=== PATIENT | female | born 1945 | race Caucasian/White ===

== ENCOUNTER 2022-01-01 12:05 | Observation (INO) ==
[2022-01-01] MEDS ORDERED: NS 500 ML IV 500 ML IV ONE (13:06)
--- NOTE | 2022-01-01 13:06 | DR.DIARMA ---
HPI Time seen Time Seen by Provider: 01/01/22 13:01 PCP Primary Care Physician: [facility] Complaint Chief Complaint Doctor Comments: 76 y/o female presents with diarrhea and lower abdominal pain x 3 days. Pain located LLQ, cramping in nature, does not radiate. Nothing makes it better, nothing makes it worse. Denies associated fever, chill s, urinary issues. Stool with foul odor, like when spouse had C diff. Denies being on recent antibiotics. Has been belching more. Had chest discomfort yesterday, was substernal, constant, now resolved. + h/o hiatal hernia and diverticulitis in the past. Chief Complaint:: Pt c/o diarrhea since yesterday. She states " It smells like c-diff." Pt states she has had indigestion and belching as well. She c/o nausea and lower abd/back pain. COVID-19 Coronavirus risk:travel/contact w/high risk person: No Has patient experienced Coronavirus symptoms: No Reviewed Nurses notes reviewed: Yes Source History Provided: Patient Mode of Arrival Mode of Arrival: Ambulatory Timing Onset of Chief Complaint: 01/01/22 PMH PMH Past Medical History: Yes Past Medical History: Anxiety, Diabetes, Dyslipidemia and Hypertension Past Surgical History: Yes Surgical History: Cholecystectomy and Hysterectomy Family History History of Family Medical Conditions: Yes Social History Does patient currently use any type of tobacco product: No Have you used tobacco products in the last 12 months: No Type of Tobacco Use: None Does any household member use tobacco: No Alcohol Use: None Do you use any recreational Drugs:: No Lives With: Family Lives Where: Home Travel Risk Coronavirus risk:travel/contact w/high risk person: No Has patient experienced Coronavirus symptoms: No Infectious screening In the last 2 months have you had wt loss of >10#?: NO Have you had fever, night sweats or hemotysis?: No Have you traveled outside the country in the last 6 months?: No Isolation: Standard ROS Review of Systems Constitutional: No Symptoms Reported Eyes: No Symptoms Reported ENTM: No Symptoms Reported Respiratoy: No Symptoms Reported Cardiovascular: Chest Pain (yesterday) Gastrointestinal/Abdominal: Abdominal Pain and Diarrhea Genitourinary: No Symptoms Reported Neurological: No Symptoms Reported Musculoskeletal: Back Pain (chronic) Integumentary: No Symptoms Reported Hematologic/Lymphatic: No Symptoms Reported Psychiatric: No Symptoms Reported All Other Systems: Reviewed and Negative PE Vital Signs Vitals: Temperature 98.4 F Pulse Rate 102 Respiratory Rate 20 Blood Pressure 182/74 O2 Sat by Pulse Oximetry 96 General Limitations: No Limitations General Appearance: Alert and In No Apparent Distress Eyes Eye exam: PERRL and EOMI ENT ENT Exam: Mucous Membranes Moist Neck Neck Exam: Normal Inspection and Full ROM Chest Chest Inspection: Normal Inspection Respiratory Respiratory Exam: Normal Lung Sounds Bilat; negative Accessory Muscle Use and Respiratory Distress Respiratory Exam: Bilateral: Clear to Auscultation Cardiovascular Cardiovascular Exam: Regular Rate, Normal Rhythm, Tachycardia and Normal Heart Sounds Abdominal Exam Abdominal Exam: Normal Inspection, Normal Bowel Sounds and Soft; negative Tenderness, Guarding and Rebound Extremeties Extremities Exam: Normal Inspection and Full ROM; negative Edema Back Back Exam: Normal Inspection; negative (R) CVA Tenderness and (L) CVA Tenderness Neurologic Neurological Exam: Alert, Oriented X3 and CN II-XII Intact; negative Motor Sensory Deficit Psychiatric Psychiatric Exam: Normal Affect Skin Skin Exam: Warm and Dry MDM Differential Diagnosis Differential Diagnosis: Diarrhea Bacterial, Diarrhea Viral, Diverticular disease and Gastroenteritis COURSE Treatment Treatment: Pt given IV fluids, w/u initiated. 1750 - W/u shows labs to be overall acceptable, except for potassium low at 3.1. U/A shows 20-30 WBCs with + cindi est and bacteria, c/w UTI. Given IV Rocephin. CT of the abd/pelvis done, + large amount of diverticulosis, no -itis. + liquid stool in bowels. Pt has been unable to provide a stool sample for c diff. Having small, liquid stools, in diaper, soaks up, lab unable to run on those samples. RN attempting to collect with hat on toilet. Discussed with covering , Dr Gray. Will admit pt for ob servation, continue IV fluids, IV rocephin for UTI. ROR Labs Reviewed Laboratory Results Reviewed?: Yes Result Diagrams: 01/01/22 13:16 01/01/22 13:16 Laboratory: WBC 6.8 X10^3/uL (3.6-10.0) 01/01/22 13:16 RBC 4.47 X10^6/uL (3.5-5.4) 01/01/22 13:16 Hgb 13.5 g/dL (12.0-16.0) 01/01/22 13:16 Hct 39.7 % (36.0-47.0) 01/01/22 13:16 MCV 88.8 fL (80.0-100.0) 01/01/22 13:16 MCH 30.2 pg (27.0-34.0) 01/01/22 13:16 MCHC 34.1 g/dL (33.0-35.0) 01/01/22 13:16 RDW 13.3 % (11.6-16.5) 01/01/22 13:16 Plt Count 183 X10^3/uL (150.0-450.0) 01/01/22 13:16 MPV 8.2 fL (7.4-11.0) 01/01/22 13:16 Neut % (Auto) 84.7 % (42.0-75.0) H 01/01/22 13:16 Lymph % (Auto) 7.5 % (21.0-51.0) L 01/01/22 13:16 [place] % (Auto) 7.1 % (0.0-13.0) 01/01/22 13:16 Eos % (Auto) 0.4 % (0.9-2.9) L 01/01/22 13:16 Baso % (Auto) 0.3 % (0.2-1.0) 01/01/22 13:16 Neut # (Auto) 5.8 x10^3/uL (2.2-4.8) H 01/01/22 13:16 Lymph # (Auto) 0.5 X10^3/uL (1.3-2.9) L 01/01/22 13:16 [place] # (Auto) 0.5 x10^3/uL (0.3-0.8) 01/01/22 13:16 Eos # (Auto) 0.0 x10^3/uL (0.0-0.2) 01/01/22 13:16 Baso # (Auto) 0.0 X10^3/uL (0.0-0.1) 01/01/22 13:16 Absolute Nucleated RBC 0.1 /100WBC 01/01/22 13:16 Sodium 139 mmol/L (136-145) 01/01/22 13:16 Corrected Sodium TNP 01/01/22 13:16 Potassium 3.1 mmol/L (3.5-5.1) L 01/01/22 13:16 Chloride 105 mmol/L (98-107) 01/01/22 13:16 Carbon Dioxide 24.2 mmol/L (21-32) 01/01/22 13:16 BUN 23 mg/dL (7-18) H 01/01/22 13:16 Creatinine 1.03 mg/dL (0.55-1.02) H 01/01/22 13:16 Est GFR (MDRD) Af Amer > 60 (>60) 01/01/22 13:16 Est GFR (MDRD) Non-Af 55 (>60) L 01/01/22 13:16 Glucose 110 mg/dL (65-99) H 01/01/22 13:16 Calcium 8.5 mg/dL (8.5-10.1) 01/01/22 13:16 Corrected Calcium TNP 01/01/22 13:16 Total Bilirubin 0.40 mg/dL (0.2-1.0) 01/01/22 13:16 AST 22 Units/L (15-37) 01/01/22 13:16 ALT 25 Units/L (12-78) 01/01/22 13:16 Alkaline Phosphatase 70 Units/L (46-116) 01/01/22 13:16 Creatine Kinase 49 Units/L (26-192) 01/01/22 13:16 CK-MB (CK-2) < 1.0 ng/mL (0-4.0) 01/01/22 13:16 CK/CKMB % Calc 2.0 % (<4) 01/01/22 13:16 Troponin I High Sens 11.3 ng/L (4.0-60.0) 01/01/22 13:16 Total Protein 7.0 g/dL (6.4-8.2) 01/01/22 13:16 Albumin 3.6 g/dL (3.4-5.0) 01/01/22 13:16 Globulin 3.4 g/dL (2.5-4.5) 01/01/22 13:16 Albumin/Globulin Ratio 1.1 Ratio (1.1-2.1) 01/01/22 13:16 Lipase 270 Units/L (73-393) 01/01/22 13:16 Specimen Type Clean catch urine 01/01/22 15:08 Urine Color Yellow (YELLOW) 01/01/22 15:08 Urine Appearance Clear (CLEAR) 01/01/22 15:08 Urine pH 5.0 (5.0 - 8.0) 01/01/22 15:08 Ur Specific [place] 1.015 (1.000-1.030) 01/01/22 15:08 Urine Protein 2+ (NEGATIVE) 01/01/22 15:08 Urine Glucose (UA) Negative (NEGATIVE) 01/01/22 15:08 Urine Ketones 1+ (NEGATIVE) 01/01/22 15:08 Urine Blood 1+ (NEGATIVE) 01/01/22 15:08 Urine Nitrite Negative (NEGATIVE) 01/01/22 15:08 Urine Bilirubin Negative (NEGATIVE) 01/01/22 15:08 Urine Urobilinogen Normal (NORMAL) 01/01/22 15:08 Ur Leukocyte Esterase 3+ (NEGATIVE) 01/01/22 15:08 Urine RBC 5-10 /HPF (0-3) A 01/01/22 15:08 Urine WBC 20-30 /HPF (0-5) A 01/01/22 15:08 Ur Squamous Epith Cells Few /HPF (NEGATIVE) 01/01/22 15:08 Urine Bacteria Trace /HPF (NEGATIVE) 01/01/22 15:08 Urine Mucus Few /HPF (NEGATIVE) 01/01/22 15:08 Ur Culture Indicated? Yes/culture set up 01/01/22 15:08 EKG Rate: 75 [place]: Normal Block: None Hypertrophy: None ST: Nonsp Opioid Opioid Risk Tool Age (Tristin box if 16-45): No History of Preadolescent Sexual Abuse: No Total: 0 Total Score Risk Category: Low Risk Copyright: Venkata SHIRLEY predicting aberrant behaviors Diagnosis Discharge Problem: Enteritis, Acute hypokalemia, Acute UTI Instructions Forms: Precautions for COVID19 [facility] Patient Portal Social Distancing
[2022-01-01] MEDS ORDERED: NS 1,000 ML IV 1,000 ML ONE (13:07)
[2022-01-01 13:25] LABS: BASOPHILS % (AUTO) 0.3 % (0.2-1.0); EOSINOPHILS % (AUTO) 0.4 % (0.9-2.9); HEMATOCRIT 39.7 % (36.0-47.0); HEMOGLOBIN 13.5 g/dL (12.0-16.0); LYMPHOCYTES # (AUTO) 0.5 X10^3/uL (1.3-2.9); LYMPHOCYTES % (AUTO) 7.5 % (21.0-51.0); MEAN CORPUSCULAR HEMOGLOBIN 30.2 pg (27.0-34.0); MEAN CORPUSCULAR HGB CONC 34.1 g/dL (33.0-35.0); MEAN CORPUSCULAR VOLUME 88.8 fL (80.0-100.0); MEAN PLATELET VOLUME 8.2 fL (7.4-11.0); MONOCYTES # (AUTO) 0.5 x10^3/uL (0.3-0.8); MONOCYTES % (AUTO) 7.1 % (0.0-13.0); NEUTROPHILS # (AUTO) 5.8 x10^3/uL (2.2-4.8); NEUTROPHILS % (AUTO) 84.7 % (42.0-75.0); RED BLOOD COUNT 4.47 X10^6/uL (3.5-5.4); RED CELL DISTRIBUTION WIDTH 13.3 % (11.6-16.5); WHITE BLOOD COUNT 6.8 X10^3/uL (3.6-10.0)
[2022-01-01 13:46] LABS: ALANINE AMINOTRANSFERASE 25 Units/L (12-78); ALBUMIN 3.6 g/dL (3.4-5.0); ALKALINE PHOSPHATASE 70 Units/L (46-116); ASPARTATE AMINO TRANSFERASE 22 Units/L (15-37); BLOOD UREA NITROGEN 23 mg/dL (7-18); CALCIUM 8.5 mg/dL (8.5-10.1); CARBON DIOXIDE 24.2 mmol/L (21-32); CHLORIDE 105 mmol/L (98-107); CREATINE KINASE 49 Units/L (26-192); CREATINE KINASE MB < 1.0 ng/mL (0-4.0); CREATININE 1.03 mg/dL (0.55-1.02); LIPASE 270 Units/L (73-393); SODIUM 139 mmol/L (136-145); eGFR NON BLACK RACES 55 (>60)
[2022-01-01] MEDS ORDERED: ZOFRAN INJ 4 MG VIAL ONE (14:02)
[2022-01-01] MEDS ORDERED: ZOFRAN INJ 4 MG VIAL IVP ONE (14:04)
[2022-01-01 15:15] LABS: BILIRUBIN,URINE NEGATIVE (NEGATIVE); BLOOD/HEMOGLOBIN,URINE 1+ (NEGATIVE); GLUCOSE, URINE NEGATIVE (NEGATIVE); KETONES,URINE 1+ (NEGATIVE); LEUKOCYTE ESTERASE ,URINE 3+ (NEGATIVE); NITRITES,URINE NEGATIVE (NEGATIVE); PROTEIN,URINE 2+ (NEGATIVE); UROBILINOGEN,URINE NORMAL (NORMAL)
[2022-01-01 15:24] LABS: APPEARANCE,URINE CLEAR (CLEAR); COLOR,URINE YELLOW (YELLOW)
[2022-01-01 15:25] LABS: BACTERIA,URINE TRACE /HPF (NEGATIVE); SQUAMOUS EPITHELIAL CELL,UR FEW /HPF (NEGATIVE)
--- NOTE | 2022-01-01 15:34 | CT ---
EXAM: CT ABDOMEN AND PELVIS WITH INTRAVENOUS CONTRASTHISTORY: Nausea. Lower abdominal and back pain.TECHNIQUE: Spiral axial CT images are obtained through the abdomen and pelvis without the administration of oral contrast and with the administration of intravenous contrast. Additional coronal and sagittal reformatted images are reconstructed.DOSIMETRY: Total DLP 638.2 mGycm; CTDI 39.9 mGyCOMPARISON: CT abdomen and pelvis dated April 25, 2020.FINDINGS:GASTROINTESTINAL TRACT: There is diffuse colonic diverticulosis, especially in the sigmoid region, without CT evidence for acute diverticulitis. No evidence for bowel herniation, bowel obstruction, or colitis. Nonspecific, fluid-filled, nondilated stomach and small and large bowel loops within the abdomen and pelvis; presumed gastroenteritis with impending diarrhea. Clinical correlation is advised. A normal-appearing appendix is seen.GENITOURINARY SYSTEM: There are small scattered bilateral renal cysts; largest in the right upper pole kidney measuring approximately 1.2 cm. The kidneys are otherwise unremarkable. 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 There is no ureteral calculus or stigmata of obstructive uropathy. The urinary bladder is grossly unremarkable for a non-dedicated exam.CT ABDOMEN: Status post cholecystectomy. Aortoiliac atherosclerotic disease, without aneurysm formation or dissection. The liver, spleen, pancreas, adrenal glands, and inferior vena cava are within normal limits for a CT scan. There is no intra-abdominal or retroperitoneal lymphadenopathy, free fluid, or free air seen. No abdominal herniation is noted.CT PELVIS: Status post hysterectomy. No pelvic sidewall or inguinal lymphadenopathy is seen. No inguinal herniation is noted. No free fluid or free air is seen.BONES AND JOINTS: Multilevel DDD is seen in the distal thoracic and lumbar spine. The visualized bony structures are otherwise within normal limits.LUNG BASES: The lung bases are clear.IMPRESSION:1. Nonspecific, fluid-filled, nondilated stomach and small and large bowel loops within the abdomen and pelvis; presumed gastroenteritis with impending diarrhea. Clinical correlation is advised.2. Diffuse colonic diverticulosis, especially in the sigmoid region, without CT evidence for acute diverticulitis.3. No evidence for bowel herniation, bowel obstruction, appendicitis or colitis.4. No evidence for pyelonephritis, renal stone disease or obstructive uropathy.5. No free fluid, free air, mass lesions, or lymphadenopathy seen.6. Status post cholecystectomy and hysterectomy.Electronically signed by: Gulshan Chiang (Jan 01, 2022 15:33:17)
[2022-01-01] MEDS ORDERED: NORCO 7.5/325 MG TAB PO ONE (18:20)
[2022-01-01] MEDS ORDERED: K-DUR TAB 20 MEQ PO ONE (18:22)
[2022-01-01] MEDS ORDERED: NORCO 7.5/325 MG TAB ONE (18:22)
[2022-01-01] MEDS: MICRO K EXTEN CAP 10 MEQ PO PRN (18:25)
[2022-01-01] MEDS ORDERED: REQUIP PO PRN (20:41)
[2022-01-01] MEDS: NS 1,000 ML IV 1,000 ML IV SCH (22:05)
[2022-01-01] MEDS: ROCEPHIN 1 GRAM IV PREMIX 1 G/50 ML IV.SOLN. IV SCH (22:05)
[2022-01-01] MEDS: K-DUR TAB 20 MEQ PO SCH (22:08)
[2022-01-01] MEDS: XANAX PO PRN (22:08)
[2022-01-01] MEDS: NORCO 7.5/325 MG TAB PO PRN (22:09)
[2022-01-01] MEDS ORDERED: REQUIP PO ONE (22:13)
[2022-01-02] MEDS ORDERED: MAALOX or MYLANTA ONE (00:26)
[2022-01-02] MEDS: MAALOX or MYLANTA PO PRN ×2 (00:27→20:00)
[2022-01-02 01:30] LABS: CKMB % 1.6 % (<4); CREATINE KINASE 64 Units/L (26-192); CREATINE KINASE MB < 1.0 ng/mL (0-4.0)
[2022-01-02 04:44] LABS: BASOPHILS % (AUTO) 0.2 % (0.2-1.0); EOSINOPHILS % (AUTO) 0.1 % (0.9-2.9); HEMATOCRIT 34.9 % (36.0-47.0); HEMOGLOBIN 11.8 g/dL (12.0-16.0); LYMPHOCYTES # (AUTO) 0.7 X10^3/uL (1.3-2.9); LYMPHOCYTES % (AUTO) 9.5 % (21.0-51.0); MEAN CORPUSCULAR HGB CONC 33.9 g/dL (33.0-35.0); MEAN CORPUSCULAR VOLUME 88.4 fL (80.0-100.0); MEAN PLATELET VOLUME 8.7 fL (7.4-11.0); MONOCYTES # (AUTO) 0.5 x10^3/uL (0.3-0.8); MONOCYTES % (AUTO) 7.3 % (0.0-13.0); NEUTROPHILS % (AUTO) 82.9 % (42.0-75.0); RED BLOOD COUNT 3.95 X10^6/uL (3.5-5.4); RED CELL DISTRIBUTION WIDTH 13.2 % (11.6-16.5); WHITE BLOOD COUNT 7.2 X10^3/uL (3.6-10.0)
[2022-01-02 04:48] LABS: ALANINE AMINOTRANSFERASE 72 Units/L (12-78); ALKALINE PHOSPHATASE 109 Units/L (46-116); ASPARTATE AMINO TRANSFERASE 122 Units/L (15-37); BLOOD UREA NITROGEN 18 mg/dL (7-18); CALCIUM 7.8 mg/dL (8.5-10.1); CARBON DIOXIDE 23.3 mmol/L (21-32); CHLORIDE 107 mmol/L (98-107); COR CA(FOR HYPOALB) 8.6 mg/dL (8.5-10.1); CREATININE 0.84 mg/dL (0.55-1.02); SODIUM 139 mmol/L (136-145); TOTAL PROTEIN 6.1 g/dL (6.4-8.2); eGFR NON BLACK RACES > 60 (>60)
--- NOTE | 2022-01-02 08:35 | DR.H&P ---
H&P History & Physical for Day of: H&P Date: 01/02/22 Chief Complaint Chief Complaint: abdominal pain and diarrhea Allergies Allergies Allergy/AdvReac Type Severity Reaction Status Date / Time No Known Drug Allergies Allergy Verified 04/25/20 20:31 History of Present Illness History of Present Illness: Ms Hensley is a 76y/o female with a PMH of HTN, HLD and DM that presented with worsening diarrhea and abdominal cramps for the past 4 days. She has been having watery stools since then along with nausea, no vomiting. Denies fever or chills. Patient was concerned she might have C diff so came to the ER. ER work up showed C diff (-). CTAP showed gastroenteritis and diverticulosis. UA also showed infection. She was started on IV fluids and IV Rocephin. Patient was also complaining of chest tightness, cardiac enzymes and EKG were normal. She is feeling better this morning. Denies chest pain. Her diarrhea has slowed down a bit. She was able to tolerate clears. She states her abdominal pain has also improved. Labs/imaging reviewed Plan: Continue IV Rocephin, add flagyl. Continue hydration. Follow urine Cx. Resume home medications. Monitor stool output. Advance diet to full liquids. Monitor AM labs. Past Medical History Past Medical History: Anxiety, Diabetes, Dyslipidemia and Hypertension Past Surgical History Surgical History: Cholecystectomy and Hysterectomy Family History Family Medical History: Cancer Social History Does patient currently use any type of tobacco product: No Have you used tobacco products in the last 12 months: No Type of Tobacco Use: None Does any household member use tobacco: No Alcohol Use: None Drug Use: None Prescription drug monitoring program results: PDMP reviewed and no concerns identified Medications Home Medications: No Known Drug Allergies Allergy (Verified 04/25/20 20:31) CONTINUE taking the following medications alprazolam [Xanax] 1 mg PO PRN PRN 01/01/22 [History] amlodipine-olmesartan 1 tab PO DAILY 01/01/22 [History] armodafinil 150 mg PO DAILY 01/01/22 [History] hydrocodone-acetaminophen 1 tab PO BID PRN 01/01/22 [History] omeprazole 40 mg PO DAILY 01/01/22 [History] ondansetron HCl [Zofran] 4 mg PO PRN PRN 01/01/22 [History] ropinirole 0.5 mg PO PRN PRN 01/01/22 [History] rosuvastatin 40 mg PO DAILY 01/01/22 [History] semaglutide [Rybelsus] 7 mg PO DAILY 01/01/22 [History] Labs Result Diagrams: 01/02/22 03:50 01/02/22 03:50 Labs: Laboratory WBC 7.2 X10^3/uL (3.6-10.0) 01/02/22 03:50 RBC 3.95 X10^6/uL (3.5-5.4) 01/02/22 03:50 Hgb 11.8 g/dL (12.0-16.0) L 01/02/22 03:50 Hct 34.9 % (36.0-47.0) L 01/02/22 03:50 MCV 88.4 fL (80.0-100.0) 01/02/22 03:50 MCH 30.0 pg (27.0-34.0) 01/02/22 03:50 MCHC 33.9 g/dL (33.0-35.0) 01/02/22 03:50 RDW 13.2 % (11.6-16.5) 01/02/22 03:50 Plt Count 165 X10^3/uL (150.0-450.0) 01/02/22 03:50 MPV 8.7 fL (7.4-11.0) 01/02/22 03:50 Neut % (Auto) 82.9 % (42.0-75.0) H 01/02/22 03:50 Lymph % (Auto) 9.5 % (21.0-51.0) L 01/02/22 03:50 [place] % (Auto) 7.3 % (0.0-13.0) 01/02/22 03:50 Eos % (Auto) 0.1 % (0.9-2.9) L 01/02/22 03:50 Baso % (Auto) 0.2 % (0.2-1.0) 01/02/22 03:50 Neut # (Auto) 6.0 x10^3/uL (2.2-4.8) H 01/02/22 03:50 Lymph # (Auto) 0.7 X10^3/uL (1.3-2.9) L 01/02/22 03:50 [place] # (Auto) 0.5 x10^3/uL (0.3-0.8) 01/02/22 03:50 Eos # (Auto) 0.0 x10^3/uL (0.0-0.2) 01/02/22 03:50 Baso # (Auto) 0.0 X10^3/uL (0.0-0.1) 01/02/22 03:50 Absolute Nucleated RBC 0.0 /100WBC 01/02/22 03:50 Sodium 139 mmol/L (136-145) 01/02/22 03:50 Corrected Sodium TNP 01/02/22 03:50 Potassium 3.8 mmol/L (3.5-5.1) 01/02/22 03:50 Chloride 107 mmol/L (98-107) 01/02/22 03:50 Carbon Dioxide 23.3 mmol/L (21-32) 01/02/22 03:50 BUN 18 mg/dL (7-18) 01/02/22 03:50 Creatinine 0.84 mg/dL (0.55-1.02) 01/02/22 03:50 Est GFR (MDRD) Af Amer > 60 (>60) 01/02/22 03:50 Est GFR (MDRD) Non-Af > 60 (>60) 01/02/22 03:50 Glucose 110 mg/dL (65-99) H 01/02/22 03:50 Calcium 7.8 mg/dL (8.5-10.1) L 01/02/22 03:50 Corrected Calcium 8.6 mg/dL (8.5-10.1) 01/02/22 03:50 Magnesium 1.8 mg/dL (1.7-2.9) 01/02/22 03:50 Total Bilirubin 0.20 mg/dL (0.2-1.0) 01/02/22 03:50 AST 122 Units/L (15-37) H 01/02/22 03:50 ALT 72 Units/L (12-78) 01/02/22 03:50 Alkaline Phosphatase 109 Units/L (46-116) 01/02/22 03:50 Creatine Kinase 64 Units/L (26-192) 01/02/22 00:54 CK-MB (CK-2) < 1.0 ng/mL (0-4.0) 01/02/22 00:54 CK/CKMB % Calc 1.6 % (<4) 01/02/22 00:54 Troponin I High Sens 14.3 ng/L (4.0-60.0) 01/02/22 00:54 Total Protein 6.1 g/dL (6.4-8.2) L 01/02/22 03:50 Albumin 3.0 g/dL (3.4-5.0) L 01/02/22 03:50 Globulin 3.1 g/dL (2.5-4.5) 01/02/22 03:50 Albumin/Globulin Ratio 1.0 Ratio (1.1-2.1) L 01/02/22 03:50 Lipase 270 Units/L (73-393) 01/01/22 13:16 Specimen Type Clean catch urine 01/01/22 15:08 Urine Color Yellow (YELLOW) 01/01/22 15:08 Urine Appearance Clear (CLEAR) 01/01/22 15:08 Urine pH 5.0 (5.0 - 8.0) 01/01/22 15:08 Ur Specific [place] 1.015 (1.000-1.030) 01/01/22 15:08 Urine Protein 2+ (NEGATIVE) 01/01/22 15:08 Urine Glucose (UA) Negative (NEGATIVE) 01/01/22 15:08 Urine Ketones 1+ (NEGATIVE) 01/01/22 15:08 Urine Blood 1+ (NEGATIVE) 01/01/22 15:08 Urine Nitrite Negative (NEGATIVE) 01/01/22 15:08 Urine Bilirubin Negative (NEGATIVE) 01/01/22 15:08 Urine Urobilinogen Normal (NORMAL) 01/01/22 15:08 Ur Leukocyte Esterase 3+ (NEGATIVE) 01/01/22 15:08 Urine RBC 5-10 /HPF (0-3) A 01/01/22 15:08 Urine WBC 20-30 /HPF (0-5) A 01/01/22 15:08 Ur Squamous Epith Cells Few /HPF (NEGATIVE) 01/01/22 15:08 Urine Bacteria Trace /HPF (NEGATIVE) 01/01/22 15:08 Urine Mucus Few /HPF (NEGATIVE) 01/01/22 15:08 Ur Culture Indicated? Yes/culture set up 01/01/22 15:08 Stl C. diff Tox B Gene Negative (NEGATIVE) 01/01/22 21:40 Stl C. diff [id number] Presumptive negative (NEGATIVE) 01/01/22 21:40 SARS-CoV-2 (PCR) Negative (NEGATIVE) 01/01/22 17:51 Review of Systems Constitutional: Weakness Eyes: No Symptoms Reported ENT: No Symptoms Reported Respiratory: No Symptoms Reported Cardiovascular: Chest Pain Gastrointestinal: Nausea, Abdominal Pain and Diarrhea Genitourinary: No Symptoms Reported Musculoskeletal: No Symptoms Reported Skin: No Symptoms Reported Neurological: No Symptoms Reported Physical Exam Vital Signs: Temperature 98.3 F Pulse Rate [Left Brachial] 66 Pulse Rate 102 Respiratory Rate 16 Blood Pressure [Left Arm] 130/60 Blood Pressure 182/74 O2 Sat by Pulse Oximetry 94 Oriented: Normal Eyes: Normal Ear: Normal Nose: Normal Throat: Normal Respiratory: Clear Throughout Cardiovascular: Normal Auscultation: Bowel Sounds: Normal Palpation: Normal Tenderness: Diffuse and Mild; negative Guarding and Rigidity Skin: Decreased [place]urgur Musculoskeletal: Normal Psychiatric: Normal Mood Description: Calm Affect: Normal Speech Pattern: Clear and Appropriate Assessment/Plan (1) Gastroenteritis: Status: Acute (2) UTI (urinary tract infection): Qualifiers: Hematuria presence: with hematuria Urinary tract infection type: site unspecified Qualified Code(s): N39.0 - Urinary tract infection, site not specified; R31.9 - Hematuria, unspecified Status: Acute (3) Diarrhea: Qualifiers: Diarrhea type: unspecified type Qualified Code(s): R19.7 - Diarrhea, unspecified Status: Acute (4) Acute hypokalemia: Status: Acute (5) HTN (hypertension): Qualifiers: Hypertension type: primary hypertension Qualified Code(s): I10 - Essential (primary) hypertension Status: Acute Review H&P Reviewed: Yes Patient was examined?: Yes
[2022-01-02] MEDS ORDERED: CRESTOR TAB 10 MG PO SCH (09:00)
[2022-01-02] MEDS ORDERED: PATIENT'S HOME MEDICATION (Rosuvastatin 40 mg tablet) PO SCH (09:00)
[2022-01-02] MEDS ORDERED: AMLODIPINE OLMESARTAN PO SCH (09:00)
[2022-01-02] MEDS: NORVASC TAB 10 MG PO SCH (09:33)
[2022-01-02] MEDS: PriLOSEC PO SCH (09:33)
[2022-01-02] MEDS: BENICAR TAB 40 MG PO SCH (09:33)
[2022-01-02] MEDS: K-DUR TAB 20 MEQ PO SCH ×2 (09:35→21:05)
[2022-01-02] MEDS: ARMODAFINIL 150 MG PO SCH (09:38)
[2022-01-02] MEDS: NORCO 7.5/325 MG TAB PO PRN ×2 (09:48→21:40)
[2022-01-02] MEDS: FLAGYL TAB 500 MG PO SCH ×3 (09:49→22:55)
[2022-01-02] MEDS: MAGNESIUM SULFATE 1 GRAM/100 mL PREMIX 1 G/100 ML BAG IV PRN ×2 (09:54→16:38)
[2022-01-02] MEDS: NS 1,000 ML IV 1,000 ML IV SCH ×2 (10:55→22:54)
[2022-01-02 12:26] VITALS: BMI 29.7
[2022-01-02] MEDS ORDERED: ZOFRAN INJ 4 MG VIAL IVP PRN (19:30)
[2022-01-02] MEDS ORDERED: REQUIP PO PRN (19:31)
[2022-01-02] MEDS: ROCEPHIN 1 GRAM IV PREMIX 1 G/50 ML IV.SOLN. IV SCH (21:20)
[2022-01-02] MEDS: CRESTOR TAB 10 MG PO SCH (21:30)
[2022-01-02] MEDS: XANAX PO PRN (21:40)
[2022-01-03] MEDS: NS 1,000 ML IV 1,000 ML IV SCH ×2 (03:17→11:41)
[2022-01-03 05:24] LABS: BASOPHILS % (AUTO) 0.5 % (0.2-1.0); EOSINOPHILS # (AUTO) 0.1 x10^3/uL (0.0-0.2); EOSINOPHILS % (AUTO) 1.4 % (0.9-2.9); HEMATOCRIT 32.5 % (36.0-47.0); HEMOGLOBIN 11.2 g/dL (12.0-16.0); LYMPHOCYTES # (AUTO) 1.1 X10^3/uL (1.3-2.9); LYMPHOCYTES % (AUTO) 27.8 % (21.0-51.0); MEAN CORPUSCULAR HEMOGLOBIN 30.1 pg (27.0-34.0); MEAN CORPUSCULAR HGB CONC 34.5 g/dL (33.0-35.0); MEAN CORPUSCULAR VOLUME 87.3 fL (80.0-100.0); MEAN PLATELET VOLUME 8.5 fL (7.4-11.0); MONOCYTES # (AUTO) 0.4 x10^3/uL (0.3-0.8); MONOCYTES % (AUTO) 8.8 % (0.0-13.0); NEUTROPHILS # (AUTO) 2.5 x10^3/uL (2.2-4.8); NEUTROPHILS % (AUTO) 61.5 % (42.0-75.0); RED BLOOD COUNT 3.72 X10^6/uL (3.5-5.4); WHITE BLOOD COUNT 4.1 X10^3/uL (3.6-10.0)
[2022-01-03 05:33] LABS: ALANINE AMINOTRANSFERASE 44 Units/L (12-78); ALBUMIN 2.7 g/dL (3.4-5.0); ALKALINE PHOSPHATASE 89 Units/L (46-116); ASPARTATE AMINO TRANSFERASE 37 Units/L (15-37); BLOOD UREA NITROGEN 9 mg/dL (7-18); CALCIUM 7.6 mg/dL (8.5-10.1); CARBON DIOXIDE 25.8 mmol/L (21-32); CHLORIDE 109 mmol/L (98-107); COR CA(FOR HYPOALB) 8.6 mg/dL (8.5-10.1); CREATININE 0.66 mg/dL (0.55-1.02); SODIUM 140 mmol/L (136-145); TOTAL PROTEIN 5.5 g/dL (6.4-8.2); eGFR NON BLACK RACES > 60 (>60)
[2022-01-03] MEDS: FLAGYL TAB 500 MG PO SCH ×3 (05:59→21:27)
[2022-01-03] MEDS: NORVASC TAB 10 MG PO SCH (09:45)
[2022-01-03] MEDS: BENICAR TAB 40 MG PO SCH (09:45)
[2022-01-03] MEDS: PriLOSEC PO SCH (09:45)
[2022-01-03] MEDS: ARMODAFINIL 150 MG PO SCH ×2 (09:49→09:53)
[2022-01-03] MEDS: K-DUR TAB 20 MEQ PO SCH ×2 (09:51→21:27)
[2022-01-03] MEDS ORDERED: CLEOCIN 300 MG IV PREMIX 300 MG/50 ML BAG IV SCH (15:00)
[2022-01-03] MEDS: ROCEPHIN 1 GRAM IV PREMIX 1 G/50 ML IV.SOLN. IV SCH (21:23)
[2022-01-03] MEDS: CRESTOR TAB 10 MG PO SCH (21:25)
--- NOTE | 2022-01-03 21:29 | PCM.PROG ---
Progress Note Progress Note for Day of Date of Exam: 01/03/22 Subjective Subjective: The patient is feeling much better this morning she reports. She is still having some diarrhea but overall improved. He has no nausea this morning as well. Her urine culture is back in which he grew out E. coli and Klebsiella pneumoniae. The antibiotic she is receiving will cover her infection. Her hypokalemia has resolved and we will plan to continue her on IV antibiotics and reevaluate her in the morning if she continues to do well plan on discharging her home. Past Medical Family Social History Past Med/Fam/Surg Hx: No changes since H&P Allergies: Allergies No Known Drug Allergies Allergy (Verified 04/25/20 20:31) Vital Signs and I&O's Vital Signs: Temperature 97.5 F Pulse Rate [Left Brachial] 65 Pulse Rate 102 Respiratory Rate 18 Blood Pressure [Right Arm] 135/59 Blood Pressure [Left Arm] 136/65 Blood Pressure 182/74 O2 Sat by Pulse Oximetry 96 Intake and Output: Intake & Output 01/01/22 01/02/22 01/03/22 01/04/22 11:59 11:59 11:59 11:59 Intake Total 1340 / 1340 2656 / 2656 1120 / 1120 Balance 1340 / 1340 2656 / 2656 1120 / 1120 Physical Exam Oriented: Normal Eyes: Normal Ear: Normal Nose: Normal Throat: Normal Cardiovascular: Normal Auscultation: Bowel Sounds: Normal Tenderness: Diffuse and Mild; negative Guarding and Rigidity Skin: Decreased Turgur Musculoskeletal: Normal Psychiatric: Normal Mood Description: Calm Affect: Normal Speech Pattern: Clear and Appropriate Laboratory and Diagnostics Result Diagrams: 01/03/22 05:04 01/03/22 05:04 Labs: 01/01/22 15:08 Urine,Clean Catch Urine Culture - Final Escherichia Coli Klebsiella Pneumoniae Laboratory WBC 4.1 X10^3/uL (3.6-10.0) 01/03/22 05:04 RBC 3.72 X10^6/uL (3.5-5.4) 01/03/22 05:04 Hgb 11.2 g/dL (12.0-16.0) L 01/03/22 05:04 Hct 32.5 % (36.0-47.0) L 01/03/22 05:04 MCV 87.3 fL (80.0-100.0) 01/03/22 05:04 MCH 30.1 pg (27.0-34.0) 01/03/22 05:04 MCHC 34.5 g/dL (33.0-35.0) 01/03/22 05:04 RDW 13.0 % (11.6-16.5) 01/03/22 05:04 Plt Count 146 X10^3/uL (150.0-450.0) L 01/03/22 05:04 MPV 8.5 fL (7.4-11.0) 01/03/22 05:04 Neut % (Auto) 61.5 % (42.0-75.0) 01/03/22 05:04 Lymph % (Auto) 27.8 % (21.0-51.0) 01/03/22 05:04 [place] % (Auto) 8.8 % (0.0-13.0) 01/03/22 05:04 Eos % (Auto) 1.4 % (0.9-2.9) 01/03/22 05:04 Baso % (Auto) 0.5 % (0.2-1.0) 01/03/22 05:04 Neut # (Auto) 2.5 x10^3/uL (2.2-4.8) 01/03/22 05:04 Lymph # (Auto) 1.1 X10^3/uL (1.3-2.9) L 01/03/22 05:04 [place] # (Auto) 0.4 x10^3/uL (0.3-0.8) 01/03/22 05:04 Eos # (Auto) 0.1 x10^3/uL (0.0-0.2) 01/03/22 05:04 Baso # (Auto) 0.0 X10^3/uL (0.0-0.1) 01/03/22 05:04 Absolute Nucleated RBC 0.1 /100WBC 01/03/22 05:04 Sodium 140 mmol/L (136-145) 01/03/22 05:04 Corrected Sodium TNP 01/03/22 05:04 Potassium 3.9 mmol/L (3.5-5.1) 01/03/22 05:04 Chloride 109 mmol/L (98-107) H 01/03/22 05:04 Carbon Dioxide 25.8 mmol/L (21-32) 01/03/22 05:04 BUN 9 mg/dL (7-18) 01/03/22 05:04 Creatinine 0.66 mg/dL (0.55-1.02) 01/03/22 05:04 Est GFR (MDRD) Af Amer > 60 (>60) 01/03/22 05:04 Est GFR (MDRD) Non-Af > 60 (>60) 01/03/22 05:04 Glucose 92 mg/dL (65-99) 01/03/22 05:04 POC Glucose (mg/dL) 102 mg/dL (65-99) H 01/03/22 19:40 Calcium 7.6 mg/dL (8.5-10.1) L 01/03/22 05:04 Corrected Calcium 8.6 mg/dL (8.5-10.1) 01/03/22 05:04 Magnesium 1.8 mg/dL (1.7-2.9) 01/02/22 03:50 Total Bilirubin 0.10 mg/dL (0.2-1.0) L 01/03/22 05:04 AST 37 Units/L (15-37) 01/03/22 05:04 ALT 44 Units/L (12-78) 01/03/22 05:04 Alkaline Phosphatase 89 Units/L (46-116) 01/03/22 05:04 Creatine Kinase 64 Units/L (26-192) 01/02/22 00:54 CK-MB (CK-2) < 1.0 ng/mL (0-4.0) 01/02/22 00:54 CK/CKMB % Calc 1.6 % (<4) 01/02/22 00:54 Troponin I High Sens 14.3 ng/L (4.0-60.0) 01/02/22 00:54 Total Protein 5.5 g/dL (6.4-8.2) L 01/03/22 05:04 Albumin 2.7 g/dL (3.4-5.0) L 01/03/22 05:04 Globulin 2.8 g/dL (2.5-4.5) 01/03/22 05:04 Albumin/Globulin Ratio 1.0 Ratio (1.1-2.1) L 01/03/22 05:04 Lipase 270 Units/L (73-393) 01/01/22 13:16 Specimen Type Clean catch urine 01/01/22 15:08 Urine Color Yellow (YELLOW) 01/01/22 15:08 Urine Appearance Clear (CLEAR) 01/01/22 15:08 Urine pH 5.0 (5.0 - 8.0) 01/01/22 15:08 Ur Specific [place] 1.015 (1.000-1.030) 01/01/22 15:08 Urine Protein 2+ (NEGATIVE) 01/01/22 15:08 Urine Glucose (UA) Negative (NEGATIVE) 01/01/22 15:08 Urine Ketones 1+ (NEGATIVE) 01/01/22 15:08 Urine Blood 1+ (NEGATIVE) 01/01/22 15:08 Urine Nitrite Negative (NEGATIVE) 01/01/22 15:08 Urine Bilirubin Negative (NEGATIVE) 01/01/22 15:08 Urine Urobilinogen Normal (NORMAL) 01/01/22 15:08 Ur Leukocyte Esterase 3+ (NEGATIVE) 01/01/22 15:08 Urine RBC 5-10 /HPF (0-3) A 01/01/22 15:08 Urine WBC 20-30 /HPF (0-5) A 01/01/22 15:08 Ur Squamous Epith Cells Few /HPF (NEGATIVE) 01/01/22 15:08 Urine Bacteria Trace /HPF (NEGATIVE) 01/01/22 15:08 Urine Mucus Few /HPF (NEGATIVE) 01/01/22 15:08 Ur Culture Indicated? Yes/culture set up 01/01/22 15:08 Stl C. diff Tox B Gene Negative (NEGATIVE) 01/01/22 21:40 Stl C. diff [id number] Presumptive negative (NEGATIVE) 01/01/22 21:40 SARS-CoV-2 (PCR) Negative (NEGATIVE) 01/01/22 17:51 Plan (1) Gastroenteritis: Status: Acute (2) UTI (urinary tract infection): Status: Acute Qualifiers: Hematuria presence: with hematuria Urinary tract infection type: site unspecified Qualified Code(s): N39.0 - Urinary tract infection, site not speci fied; R31.9 - Hematuria, unspecified (3) Diarrhea: Status: Acute Qualifiers: Diarrhea type: unspecified type Qualified Code(s): R19.7 - Diarrhea, unspecified (4) Acute hypokalemia: Status: Acute (5) HTN (hypertension): Status: Acute Qualifiers: Hypertension type: primary hypertension Qualified Code(s): I10 - Essential (primary) hypertension
[2022-01-03] MEDS: NORCO 7.5/325 MG TAB PO PRN (21:34)
[2022-01-03] MEDS: XANAX PO PRN (21:36)
[2022-01-04] MEDS: NS 1,000 ML IV 1,000 ML IV SCH (02:43)
[2022-01-04 05:13] LABS: BASOPHILS % (AUTO) 0.6 % (0.2-1.0); EOSINOPHILS # (AUTO) 0.1 x10^3/uL (0.0-0.2); EOSINOPHILS % (AUTO) 1.6 % (0.9-2.9); HEMATOCRIT 31.7 % (36.0-47.0); LYMPHOCYTES # (AUTO) 1.3 X10^3/uL (1.3-2.9); MEAN CORPUSCULAR HEMOGLOBIN 30.5 pg (27.0-34.0); MEAN CORPUSCULAR HGB CONC 34.8 g/dL (33.0-35.0); MEAN CORPUSCULAR VOLUME 87.7 fL (80.0-100.0); MONOCYTES # (AUTO) 0.4 x10^3/uL (0.3-0.8); MONOCYTES % (AUTO) 10.8 % (0.0-13.0); NEUTROPHILS # (AUTO) 1.5 x10^3/uL (2.2-4.8); RED BLOOD COUNT 3.61 X10^6/uL (3.5-5.4); RED CELL DISTRIBUTION WIDTH 13.4 % (11.6-16.5); WHITE BLOOD COUNT 3.3 X10^3/uL (3.6-10.0)
[2022-01-04 05:28] LABS: ALANINE AMINOTRANSFERASE 33 Units/L (12-78); ALBUMIN 2.7 g/dL (3.4-5.0); ALKALINE PHOSPHATASE 81 Units/L (46-116); ASPARTATE AMINO TRANSFERASE 22 Units/L (15-37); BLOOD UREA NITROGEN 6 mg/dL (7-18); CALCIUM 7.7 mg/dL (8.5-10.1); CARBON DIOXIDE 27.2 mmol/L (21-32); CHLORIDE 110 mmol/L (98-107); COR CA(FOR HYPOALB) 8.7 mg/dL (8.5-10.1); CREATININE 0.66 mg/dL (0.55-1.02); MAGNESIUM 2.1 mg/dL (1.7-2.9); SODIUM 141 mmol/L (136-145); TOTAL PROTEIN 5.4 g/dL (6.4-8.2); eGFR NON BLACK RACES > 60 (>60)
[2022-01-04] MEDS: FLAGYL TAB 500 MG PO SCH (05:50)
[2022-01-04 08:05] VITALS: BP 139/61
[2022-01-04] MEDS: PriLOSEC PO SCH (09:05)
[2022-01-04] MEDS: MICRO K EXTEN CAP 10 MEQ PO PRN (09:06)
[2022-01-04] MEDS: BENICAR TAB 40 MG PO SCH (09:06)
[2022-01-04] MEDS: NORVASC TAB 10 MG PO SCH (09:06)
[2022-01-04] MEDS: ARMODAFINIL 150 MG PO SCH (09:08)
--- NOTE | 2022-03-16 19:53 | PCM.DCPLAN ---
DISCHARGE SUMMARY Admission Date Date of Admission: 01/01/22 Discharge Date Discharge Date: 01/04/22 Admission Diagnoses (1) Gastroenteritis: Status: Acute (2) UTI (urinary tract infection): Status: Acute (3) Diarrhea: Status: Acute (4) Acute hypokalemia: Status: Acute (5) HTN (hypertension): Status: Acute Discharge Diagnoses Discharge Diagnosis: 1. Gastroenteritis resolved 2. UTI secondary to Klebsiella pneumonia a and E. coli 3. Diarrhea resolved 4. Acute hypokalemia resolved 5. Hypertension Discharge Medications Discharge Medications: Home Medication List alprazolam 1 mg tablet (Xanax) 1 mg PO PRN PRN 01/01/22 [History] amlodipine 10 mg-olmesartan 40 mg tablet 1 tab PO DAILY 01/01/22 [History] armodafinil 150 mg tablet 150 mg PO DAILY 01/01/22 [History] hydrocodone 7.5 mg-acetaminophen 325 mg tablet 1 tab PO BID PRN 01/01/22 [History] omeprazole 40 mg capsule,delayed release 40 mg PO DAILY 01/01/22 [History] ondansetron HCl 4 mg tablet 4 mg PO PRN PRN Nausea 01/01/22 [History] ropinirole 0.5 mg tablet 0.5 mg PO HS PRN 01/01/22 [History] rosuvastatin 40 mg tablet 40 mg PO DAILY 01/01/22 [History] semaglutide 7 mg tablet (Rybelsus) 7 mg PO DAILY 01/01/22 [History] ciprofloxacin HCl 500 mg tablet (Cipro) 500 mg PO BID #22 tabs 01/04/22 [Rx] metronidazole 500 mg tablet 500 mg PO TID #33 tabs 01/04/22 [Rx] Prescriptions: ciprofloxacin HCl [Cipro] ES [facility] Hospital Course Vital Signs: Temperature 98.1 F Pulse Rate [Left Brachial] 58 Pulse Rate 102 Respiratory Rate 18 Blood Pressure [Right Arm] 135/59 Blood Pressure [Left Arm] 139/61 Blood Pressure 182/74 O2 Sat by Pulse Oximetry 96 Latest Lab Results: Laboratory Last Values WBC 3.3 X10^3/uL (3.6-10.0) L 01/04/22 04:22 RBC 3.61 X10^6/uL (3.5-5.4) 01/04/22 04:22 Hgb 11.0 g/dL (12.0-16.0) L 01/04/22 04: Hct 31.7 % (36.0-47.0) L 01/04/22 04: MCV 87.7 fL (80.0-100.0) 01/04/22 04:22 MCH 30.5 pg (27.0-34.0) 01/04/22 04: MCHC 34.8 g/dL (33.0-35.0) 01/04/22 04: RDW 13.4 % (11.6-16.5) 01/04/22 04: Plt Count 159 X10^3/uL (150.0-450.0) 01/04/22 04: MPV 9.0 fL (7.4-11.0) 01/04/22 04: Neut % (Auto) 47.0 % (42.0-75.0) 01/04/22 04: Lymph % (Auto) 40.0 % (21.0-51.0) 01/04/22 04:22 Cassia % (Auto) 10.8 % (0.0-13.0) 01/04/22 04: Eos % (Auto) 1.6 % (0.9-2.9) 01/04/22 04: Baso % (Auto) 0.6 % (0.2-1.0) 01/04/22 04: Neut # (Auto) 1.5 x10^3/uL (2.2-4.8) L 01/04/22 04: Lymph # (Auto) 1.3 X10^3/uL (1.3-2.9) 01/04/22 04:22 Cassia # (Auto) 0.4 x10^3/uL (0.3-0.8) 01/04/22 04: Eos # (Auto) 0.1 x10^3/uL (0.0-0.2) 01/04/22 04: Baso # (Auto) 0.0 X10^3/uL (0.0-0.1) 01/04/22 04: Absolute Nucleated RBC 0.0 /100WBC 01/04/22 04:22 Sodium 141 mmol/L (136-145) 01/04/22 04:22 Corrected Sodium TNP 01/04/22 04:22 Potassium 3.6 mmol/L (3.5-5.1) 01/04/22 04:22 Chloride 110 mmol/L (98-107) H 01/04/22 04:22 Carbon Dioxide 27.2 mmol/L (21-32) 01/04/22 04:22 BUN 6 mg/dL (7-18) L 01/04/22 04:22 Creatinine 0.66 mg/dL (0.55-1.02) 01/04/22 04:22 Est GFR (MDRD) Af Amer > 60 (>60) 01/04/22 04:22 Est GFR (MDRD) Non-Af > 60 (>60) 01/04/22 04:22 Glucose 108 mg/dL (65-99) H 01/04/22 04:22 POC Glucose (mg/dL) 109 mg/dL (65-99) H 01/04/22 05:29 Calcium 7.7 mg/dL (8.5-10.1) L 01/04/22 04:22 Corrected Calcium 8.7 mg/dL (8.5-10.1) 01/04/22 04:22 Magnesium 2.1 mg/dL (1.7-2.9) 01/04/22 04:22 Total Bilirubin 0.10 mg/dL (0.2-1.0) L 01/04/22 04:22 AST 22 Units/L (15-37) 01/04/22 04:22 ALT 33 Units/L (12-78) 01/04/22 04:22 Alkaline Phosphatase 81 Units/L (46-116) 01/04/22 04:22 Creatine Kinase 64 Units/L (26-192) 01/02/22 00:54 CK-MB (CK-2) < 1.0 ng/mL (0-4.0) 01/02/22 00:54 CK/CKMB % Calc 1.6 % (<4) 01/02/22 00:54 Troponin I High Sens 14.3 ng/L (4.0-60.0) 01/02/22 00:54 Total Protein 5.4 g/dL (6.4-8.2) L 01/04/22 04:22 Albumin 2.7 g/dL (3.4-5.0) L 01/04/22 04: Globulin 2.7 g/dL (2.5-4.5) 01/04/22 04: Albumin/Globulin Ratio 1.0 Ratio (1.1-2.1) L 01/04/22 04: Lipase 270 Units/L (73-393) 01/01/22 13:16 Specimen Type Clean catch urine 01/01/22 15:08 Urine Color Yellow (YELLOW) 01/01/22 15:08 Urine Appearance Clear (CLEAR) 01/01/22 15:08 Urine pH 5.0 (5.0 - 8.0) 01/01/22 15:08 Ur Specific [place] 1.015 (1.000-1.030) 01/01/22 15:08 Urine Protein 2+ (NEGATIVE) 01/01/22 15:08 Urine Glucose (UA) Negative (NEGATIVE) 01/01/22 15:08 Urine Ketones 1+ (NEGATIVE) 01/01/22 15:08 Urine Blood 1+ (NEGATIVE) 01/01/22 15:08 Urine Nitrite Negative (NEGATIVE) 01/01/22 15:08 Urine Bilirubin Negative (NEGATIVE) 01/01/22 15:08 Urine Urobilinogen Normal (NORMAL) 01/01/22 15:08 Ur Leukocyte Esterase 3+ (NEGATIVE) 01/01/22 15:08 Urine RBC 5-10 /HPF (0-3) A 01/01/22 15:08 Urine WBC 20-30 /HPF (0-5) A 01/01/22 15:08 Ur Squamous Epith Cells Few /HPF (NEGATIVE) 01/01/22 15:08 Urine Bacteria Trace /HPF (NEGATIVE) 01/01/22 15:08 Urine Mucus Few /HPF (NEGATIVE) 01/01/22 15:08 Ur Culture Indicated? Yes/culture set up 01/01/22 15:08 Stl C. diff Tox B Gene Negative (NEGATIVE) 01/01/22 21:40 Stl C. diff [id number] Presumptive negative (NEGATIVE) 01/01/22 21:40 SARS-CoV-2 (PCR) Negative (NEGATIVE) 01/01/22 17:51 Hospital Course: Following admission the patient was treated with IV fluid and IV antibiotics. She remained nauseated and had vomiting for the first couple hospital days. Slowly improved over the last couple of hospital days. Her cultures grew out Klebsiella pneumonia and E. coli in the urine and she was treated appropriately for that. She had no significant problems or complications during her hospital stay. She was discharged home in stable condition on Wednesday, 04 January 2022. She was discharged home on Flagyl for the enteritis and ciprofloxacin for the urinary tract infection.
== END 2022-01-04 11:30 | disposition home or self-care (01) ==
LOC: ER 12:05 → MED/SURG 12:05
PROVIDERS: ADMIT Internal Medicine; ATTEND Internal Medicine
DX: R94.31 Abnormal electrocardiogram [ECG] [EKG]; E87.6 Hypokalemia; B96.1 Klebsiella pneumoniae [K. pneumoniae] as the cause of diseases classified elsewhere; E11.65 Type 2 diabetes mellitus with hyperglycemia; N39.0 Urinary tract infection, site not specified; Z20.822 Contact with and (suspected) exposure to COVID-19; E78.2 Mixed hyperlipidemia; R19.7 Diarrhea, unspecified; R31.9 Hematuria, unspecified; K52.89 Other specified noninfective gastroenteritis and colitis; I10 Essential (primary) hypertension; B96.29 Other Escherichia coli [E. coli] as the cause of diseases classified elsewhere